=== PATIENT | female | born 1985 | race Hispanic/Latino ===

== ENCOUNTER 2021-08-03 16:29 | Emergency (ER) | payer OTHER ==
[2021-08-03 16:51] LABS: Urine Blood Trace-intact (Negative); Urine Glucose Negative (Negative); Urine Protein Negative (Negative); Urine pH 6.5 (5.0-7.0)
[2021-08-03 17:00] LABS: Urine Blood Trace-lysed (Negative); Urine Glucose Negative (Negative); Urine Protein Negative (Negative)
[2021-08-03 17:06] LABS: Absolute Lymphocytes (CBC) 1.4 K/uL (0.7-4.9); Basophils % 0.3 % (0-1.3); Hematocrit 40.5 % (36.0-45.0); Lymphocytes % 16.9 % (15.3-44.8); MPV 9.3 fL (7.6-11.3); RBC Red Blood Cell Count 4.64 M/uL (3.86-4.86)
[2021-08-03 17:26] LABS: BUN Blood Urea Nitrogen 6 mg/dL (7-18); Bicarbonate 26 mmol/L (21-32); Glucose Level 107 mg/dL (74-106); Potassium 3.7 mmol/L (3.5-5.1); Sodium Level 146 mmol/L (136-145)
[2021-08-03 17:38] LABS: HCG, Quantitative 4641 mIU/mL (1-3)
[2021-08-03] MEDS ORDERED: NA CHLORIDE 0.9% 1,000 ML ONE (17:42)
--- NOTE | 2021-08-03 18:20 | RAD REPORT ---
EXAM DESCRIPTION: US - Transvaginal OB - 08/03/2021 6:02 pm CLINICAL HISTORY: Abd cramping, ;Vaginal bleeding COMPARISON: No comparisons FINDINGS: A single gestational sac is seen within the uterus. The shape of the sac is within normal limits for gestational age. Mean sac diameter yields estimated gestational age of 5 weeks 2 days. No yolk sac or embryo seen. Myometrial fibroid is suspected in the fundal region in the posterior myometrium measuring 2.4 x 2.2 cm. No adnexal mass. The left ovary appears normal with normal blood flow. The right ovary was obscured b y bowel gas. IMPRESSION: Small gestational sac with mean sac diameter of 5 weeks 2 days is present in the fundal endometrium. No yolk sac or embryo yet detected. This can still be a normal finding at this stage and follow-up serial HCG levels and pelvic ultrasound in 10-12 days would be recommended. 2.4 cm intramural myometrial fibroid posterior fundal region. Nonvisualization of right ovary due to bowel gas.
--- NOTE | 2021-08-03 18:51 | ER ---
Nurse's Notes [facility] Name: Estephanie De Jesus Age: 35 yrs Sex: Female : 1985 Arrival Date: 08/03/2021 Time: 16:36 Bed 19 Private MD: Diagnosis: Threatened Presentation: 08/03 16:39 Chief complaint: Patient states: vaginal spotting and abdominal discomfort that began aa5 this morning. Pt reports being 6 to 7 weeks . Pt also reports neck pain x 1 week ago. Coronavirus screen: At this time, the client does not indicate any symptoms associated with coronavirus-19. Ebola Screen: Patient negative for fever greater than or equal to 101.5 degrees Fahrenheit, and additional compatible Ebola Virus Disease symptoms. Initial Sepsis Screen: Does the patient meet any 2 criteria? No. Patient's initial sepsis screen is negative. Does the patient have a suspected source of infection? No. Patient's initial sepsis screen is negative. Risk Assessment: Do you want to hurt yourself or someone else? Patient reports no desire to harm self or others. Onset of symptoms was July 2021. 16:39 Method Of Arrival: Ambulatory aa5 16:39 Acuity: THOMAS 3 aa5 Triage Assessment: 19:15 General: Appears in no apparent distress. Behavior is calm, cooperative, appropriate ms4 for age. 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 - Social history:: Smoking status: Patient denies any tobacco usage or history of. Screenin:22 Abuse screen: Denies threats or abuse. Denies injuries from another. Nutritional tc5 screening: No deficits noted. Tuberculosis screening: No symptoms or risk factors identified. Fall Risk None identified. Assessment: 17:20 Obstetrical Assessment: General assessment: awake and alert, Pt reports 6 weeks tc5 , started spotting today, states she has mild cramping 1/, denies health problems.. Pain: Complains of pain in abdomen. Neuro: No deficits noted. Cardiovascular: No deficits noted. Respiratory: No deficits noted. GI: No deficits noted. : No deficits noted. Vital Signs: 16:39 BP 133 / 71; Pulse 110; Resp 18 S; Temp 98.6(TE); Pulse Ox 98% on R/A; Weight 61.69 kg aa5 (R); Height 5 ft. 8 in. (172.72 cm) (R); 16:39 Body Mass Index 20.68 (61.69 kg, 172.72 cm) aa5 ED Course: 16:36 Patient arrived in ED. am2 16:36 Deidra Morales FNP-C is PHCP. kb 16:36 Tristen Oseguera MD is Attending Physician. kb 16:39 Arm band placed on. aa5 16:40 Triage completed. aa5 16:54 Nataly Carroll, JHONATAN is Primary Nurse. tc5 17:18 PHCP role handed off by Deidra Morales FNP-C jmm 17:18 Jean-Claude Garcia PA is PHCP. jmm 17:21 Inserted saline lock: 20 gauge in right antecubital area, using aseptic technique. tc5 Placed by Deidra ISRAEL, labs drawn and sent to lab. 17:29 Abo/rh Typing Sent. ld1 17:29 Quantitative Hcg Sent. ld1 18:06 US Transvaginal Ob In Process Unspecified. EDMS 19:15 No provider procedures requiring assistance completed. IV discontinued, intact, ms4 bleeding controlled. 19:16 Patient has correct armband on for positive identification. ms4 Administered Medications: 17:21 Drug: NS 0.9% 1000 ml Route: IV; Rate: 1000 ml; Site: right antecubital; ld1 Outcome: 18:51 Discharge ordered by . susanne 19:15 Discharged to home ambulatory. ms4 19:15 Condition: stable 19:15 Condition: stable 19:15 Discharge instructions given to patient, Instructed on discharge instructions, follow up and referral plans. Demonstrated understanding of instructions. 19:16 Patient left the ED. ms4 Signatures: Dispatcher [employer] EDMS Deidra Morales FNP-C FNP-Ckb Jean-Claude Garcia PA PA jmm Calderon, Audri, RN RN aa5 Keily Wisdom am2 Barb Tan, RN RN ld1 Bailey King RN RN ms4 Nataly Carroll, RN RN tc5
--- NOTE | 2021-08-03 18:51 | EDPHYS ---
Physician Documentation [facility] Name: Estephanie De Jesus Age: 35 yrs Sex: Female : 1985 Arrival Date: 08/03/2021 Time: 16:36 Bed 19 Private MD: ED Physician Tristen Oseguera HPI: 08/03 16:42 This 35 yrs old Female presents to ER via Ambulatory with complaints of kb Vaginal Bleeding, + Preg <12wks. 16:42 The patient presents to the emergency department with abdominal pain, of the suprapubic kb area, right lower quadrant and left lower quadrant, described as crampy, vaginal bleeding, described as spotting. The estimated gestational age is 6 weeks. course: care: none, Leakage of Fluid: none appreciated, Ultrasound: the patient has not had an ultrasound, Risk/complications: no obvious risks or complications are appreciated. Previous pregnancies: the patient has never been . Associated signs and symptoms: Pertinent positives: abdominal pain, vaginal bleeding. The patient has not experienced similar symptoms in the past. The patient has not recently seen a physician. Pt reports lower abd pain and spotting that started this morning. 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 - Social history:: Smoking status: Patient denies any tobacco usage or history of. ROS: 16:42 Constitutional: Negative for fever, chills, and weight loss. kb 16:42 Abdomen/GI: Positive for abdominal cramps. 16:42 : Positive for vaginal bleeding. 16:42 All other systems are negative. Exam: 16:42 Constitutional: This is a well developed, well nourished patient who is awake, alert, kb and in no acute distress. Head/Face: Normocephalic, atraumatic. ENT: Moist Mucous membranes Respiratory: Respirations even and unlabored. No increased work of breathing, no retractions or nasal flaring. Abdomen/GI: Soft, non-tender. No distention Skin: Warm, dry with normal turgor. Normal color. MS/ Extremity: Pulses equal, no cyanosis. Neurovascular intact. Full, normal range of motion. Neuro: Awake and alert, GCS 15, oriented to person, place, time, and situation. Moves all extremities. Normal gait. Psych: Awake, alert, with orientation to person, place and time. Behavior, mood, and affect are within normal limits. Vital Signs: 16:39 BP 133 / 71; Pulse 110; Resp 18 S; Temp 98.6(TE); Pulse Ox 98% on R/A; Weight 61.69 kg aa5 (R); Height 5 ft. 8 in. (172.72 cm) (R); 16:39 Body Mass Index 20.68 (61.69 kg, 172.72 cm) aa5 MDM: 16:36 Patient medically screened. kb 16:42 Data reviewed: vital signs, nurses notes. Data interpreted: Pulse oximetry: on room air kb is 98 %. Interpretation: normal. 17:18 Transition of care: After a detail discussion of the patient's case, care is kb transferred to Jean-Claude CHAMBERS. 18:50 Counseling: I had a detailed discussion with the patient and/or guardian regarding: the [facility] historical points, exam findings, and any diagnostic results supporting the discharge/admit diagnosis, lab results, radiology results, the need for outpatient follow up, to return to the emergency department if symptoms worsen or persist or if there are any questions or concerns that arise at home. 08/03 16:37 Order name: Abo/rh Typing; Complete Time: 18:50 kb 08/03 16:37 Order name: Basic Metabolic Panel; Complete Time: 17:39 kb 08/03 16:37 Order name: CBC with Diff; Complete Time: 17:11 kb 08/03 16:37 Order name: Quantitative Hcg; Complete Time: 17:39 kb 08/03 16:51 Order name: Urine Dipstick-Ancillary; Complete Time: 16:56 EDMS 08/03 16:51 Order name: Urine --Ancillary (enter results); Complete Time: 17:21 em1 08/03 16:37 Order name: IV Saline Lock; Complete Time: 16:55 kb 08/03 16:37 Order name: Labs collected and sent; Complete Time: 16:55 kb 08/03 16:37 Order name: NPO; Complete Time: 17:28 kb 08/03 16:37 Order name: Urine Dipstick-Ancillary (obtain specimen); Complete Time: 16:51 kb 08/03 16:37 Order name: Urine Test (obtain specimen); Complete Time: 16:51 kb 08/03 16:41 Order name: US Transvaginal Ob; Complete Time: 18:27 kb 08/03 17:01 Order name: Urine Dipstick-Ancillary; Complete Time: 17:01 EDMS Administered Medications: 17:21 Drug: NS 0.9% 1000 ml Route: IV; Rate: 1000 ml; Site: right antecubital; ld1 Disposition: 08/04 05:55 Co-signature as Attending Physician, Tristen Oseguera MD I agree with the assessment and ash plan of care. Disposition Summary: 08/03/21 18:51 Discharge Ordered Location: Home jm Condition: Stable jm Diagnosis - Threatened [facility] Followup: jmm - With: Private Physician - When: 2 - 3 days - Reason: Recheck today's complaints, Continuance of care, Re-evaluation by your physician Discharge Instructions: - Discharge Summary Sheet [facility] - Threatened Miscarriage [facility] Forms: - Medication Reconciliation Form [facility] - Thank You Letter [facility] - Antibiotic Education [facility] - Prescription Opioid Use [facility] Signatures: Dispatcher [employer] EDDeidra Merino, [place] TELEHEALTH COORDINATOR-Tristen Wheeler MD MD cha Mickail, Joel, PA PA jmm Calderon, Audri, RN RN aa5 Barb aTn RN RN ld1
[2021-08-04 06:15] VITALS: BP 133/71; TEMP 98.6; O2SAT 98
== END 2021-08-03 19:16 | disposition home or self-care (01) ==
LOC: ER 16:29
DX: O20.0 Threatened abortion (principal); Z3A.01 Less than 8 weeks gestation of pregnancy
CPT/HCPCS: 85025; 80048; 36415; 86900; 81025; 86901; 84702; 81003 ×2; 76817; 99284; J7030